=== PATIENT | male | born 1950 | race Caucasian/White ===

== ENCOUNTER → 2018-07-25 06:00 | Outpatient (CLI) | payer OTHER ==
[~2018-07-25] VITALS: Ht 172.7 cm; Wt 72.6 kg
[~2018-07-25 06:00] MED LIST: ALPRAZOLAM1 M1 PO; CALCIUM500 M1 PO; HYDRALAZINE HCL50 MG PO; LOSARTAN POTASS50 MG PO
== END | disposition home or self-care (01) ==
LOC: LAB 06:00 → EDSTATUS 08-02 09:00 → SURH 08-02 09:00
DX: C64.1 Malignant neoplasm of right kidney, except renal pelvis (principal); Z01.810 Encounter for preprocedural cardiovascular examination

== ENCOUNTER 2018-07-31 08:54 | Outpatient (CLI) | payer OTHER | END 2018-07-31 15:00 | disposition home or self-care (01) | LOC: LAB 08:54 | DX: D69.0 Allergic purpura (principal); R31.9 Hematuria, unspecified ==

== ENCOUNTER 2018-09-09 16:46 | Outpatient (CLI) | payer OTHER | END 2018-09-09 16:50 | disposition home or self-care (01) | LOC: LAB 16:46 | DX: D69.59 Other secondary thrombocytopenia (principal); N18.6 End stage renal disease; D63.1 Anemia in chronic kidney disease; N28.89 Other specified disorders of kidney and ureter; I10 Essential (primary) hypertension; D68.8 Other specified coagulation defects; D50.8 Other iron deficiency anemias; D51.8 Other vitamin B12 deficiency anemias; E51.11 Dry beriberi; D51.0 Vitamin B12 deficiency anemia due to intrinsic factor deficiency ==

== ENCOUNTER 2018-09-23 12:38 | Outpatient (CLI) | payer OTHER | END 2018-09-23 12:46 | disposition home or self-care (01) | LOC: LAB 12:38 | DX: D69.59 Other secondary thrombocytopenia (principal); N18.6 End stage renal disease; D63.1 Anemia in chronic kidney disease; N28.89 Other specified disorders of kidney and ureter; I10 Essential (primary) hypertension; D50.8 Other iron deficiency anemias; D51.8 Other vitamin B12 deficiency anemias; D68.8 Other specified coagulation defects ==

== ENCOUNTER 2018-10-08 09:30 | Inpatient (IN) | payer OTHER ==
[~2018-10-08] VITALS: Ht 172.7 cm; Wt 70.3 kg
== END 2018-10-18 14:14 | disposition home or self-care (01) | DRG 656 ==
LOC: ADM 09:30 → EDSTATUS 10-09 09:30 → O/R 10-14 05:10 → SURG 10-14 05:10 → SURH 10-14 05:10 → SURG 10-14 11:24 → SURH 10-15 10:32
PROVIDERS: ADMIT Urology
PROC: 5A1D70Z Performance of Urinary Filtration, Intermittent, Less than 6 Hours Per Day (ICD-10-PCS; 2018-10-14)
PROC: 0TT04ZZ Resection of Right Kidney, Percutaneous Endoscopic Approach (ICD-10-PCS; principal; 2018-10-14 07:00)
DX: C64.1 Malignant neoplasm of right kidney, except renal pelvis (principal); N18.6 End stage renal disease; I12.0 Hypertensive chronic kidney disease with stage 5 chronic kidney disease or end stage renal disease; Z99.2 Dependence on renal dialysis

== ENCOUNTER → 2019-06-09 09:38 | Outpatient (CLI) | payer OTHER | END | disposition home or self-care (01) | LOC: LAB 09:38 | DX: D69.59 Other secondary thrombocytopenia (principal); D63.1 Anemia in chronic kidney disease; N28.89 Other specified disorders of kidney and ureter; I10 Essential (primary) hypertension; D50.8 Other iron deficiency anemias; D51.8 Other vitamin B12 deficiency anemias; E03.8 Other specified hypothyroidism; D68.8 Other specified coagulation defects; R97.0 Elevated carcinoembryonic antigen [CEA]; R97.20 Elevated prostate specific antigen [PSA]; R97.8 Other abnormal tumor markers; E04.1 Nontoxic single thyroid nodule ==

== ENCOUNTER 2020-06-25 09:00 | Inpatient (IN) | payer OTHER ==
[~2020-06-25] VITALS: Ht 172.7 cm; Wt 74.4 kg
[2020-06-25] MEDS ORDERED: XANAX1 MG PO (11:48)
[2020-06-25] MEDS ORDERED: SENSIPAR30 MG PO (11:48)
[2020-06-25] MEDS ORDERED: SEVELAMER CARB800 MG PO (11:48)
[2020-06-25] MEDS ORDERED: AMOXICILLIN500 MG PO (11:50)
== END 2020-07-05 09:21 | disposition home or self-care (01) | DRG 656 ==
LOC: SURH 07-02 06:35 → O/R 07-02 06:35 → SURH 07-02 09:00
PROVIDERS: ADMIT Urology; ATTEND Urology
PROC: 0TT14ZZ Resection of Left Kidney, Percutaneous Endoscopic Approach (ICD-10-PCS; principal; 2020-07-02 10:00)
PROC: 5A1D70Z Performance of Urinary Filtration, Intermittent, Less than 6 Hours Per Day (ICD-10-PCS; 2020-07-03)
DX: C64.2 Malignant neoplasm of left kidney, except renal pelvis (principal); N18.6 End stage renal disease; I12.0 Hypertensive chronic kidney disease with stage 5 chronic kidney disease or end stage renal disease; Z99.2 Dependence on renal dialysis; Z20.828 Contact with and (suspected) exposure to other viral communicable diseases